=== PATIENT | male | born 1975 | race Two or more races ===

== ENCOUNTER 2021-11-26 12:43 | Emergency (ER) | payer OTHER ==
[~2021-11-26] VITALS: Ht 175.3 cm; Wt 95.3 kg
[2021-11-26] MEDS ORDERED: TALTZ AUTO80 MG/1 ML SQ (13:20)
== END 2021-11-26 15:24 | disposition home or self-care (01) ==
LOC: ER 12:43
DX: F41.8 Other specified anxiety disorders (principal); R51.9 Headache, unspecified; R53.81 Other malaise; Z88.0 Allergy status to penicillin